=== PATIENT | female | born 1945 | race Caucasian/White ===

== ENCOUNTER 2021-10-24 08:31 | Outpatient (CLI) | payer MEDICARE | END 2021-10-24 08:32 | disposition home or self-care (01) | LOC: CSHLAB 08:31 | PROVIDERS: ATTEND Internal Medicine Pulmonary Disease | DX: Z20.822 Contact with and (suspected) exposure to COVID-19 (principal) | CPT/HCPCS: 87811 ==

== ENCOUNTER 2021-10-28 12:01 | Outpatient (CLI) | payer MEDICARE | END 2021-10-28 12:02 | disposition home or self-care (01) | LOC: CSHCP 12:01 | PROVIDERS: ATTEND Internal Medicine Pulmonary Disease | DX: J44.9 Chronic obstructive pulmonary disease, unspecified (principal) | CPT/HCPCS: 94060; 94726; 94729; 94760 ==